=== PATIENT | male | born 1995 | race Caucasian/White ===

== ENCOUNTER 2017-07-28 23:16 | Emergency (ER) | payer SELFPAY ==
--- NOTE | 2017-07-28 23:40 | C.PDOC ---
History Of Present Illness The patient presents to the ED for evaluation of fever and chills which began around 2 days ago. Patient also reports having fevers at night. Patient reports waking during the night while sweating profusely. Patient took some Motrin yesterday without significant relief. Today, patient experienced hematuria and dysuria and presents for further evaluation. He denies pain, nausea, vomiting. Time Seen by Provider: 07/28/17 23:40 Chief Complaint (Nursing): Fever History Per: Patient History/Exam Limitations: no limitations Onset/Duration Of Symptoms: Days (2) Current Symptoms Are (Timing): Still Present Sick Contacts (Context): None Associated Symptoms: Fever, Chills, Other (dysuria, hematuria ). denies: Nausea , Vomiting Ear Symptoms: Bilateral: None Severity: Mild Pain Scale Rating Of: 0 Recent travel outside of the [place]: No Additional History Per: Patient Past Medical History Reviewed: Historical Data, Nursing Documentation, Vital Signs Vital Signs: Last Vital Signs Temp 98.9 F 07/28/17 23:21 Pulse 86 07/28/17 23:21 Resp 20 07/28/17 23:21 BP 129/86 07/28/17 23:21 Pulse Ox 99 07/29/17 00:07 - Medical History PMH: No Chronic Diseases Surgical History: No Surg Hx Family History: States: Unknown Family Hx - Social History Hx Alcohol Use: Yes Hx Substance Use: No - Immunization History Hx Tetanus Toxoid Vaccination: No Hx Influenza Vaccination: No Hx Pneumococcal Vaccination: No Review Of Systems Constitutional: Positive for: Fever, Chills ENT: Negative for: Nose Discharge, Nose Congestion Cardiovascular: Negative for: Chest Pain, Palpitations Respiratory: Negative for: Cough, Shortness of Breath Gastrointestinal: Negative for: Nausea, Vomiting, Abdominal Pain Genitourinary: Positive for: Dysuria, Hematuria. Negative for: Frequency Skin: Negative for: Rash, Lesions, Jaundice, Bruising Neurological: Negative for: Weakness, Numbness Psych: Negative for: Anxiety Physical Exam - Physical Exam Appears: Non-toxic, No Acute Distress Skin: Warm, Dry Head: Normacephalic Eye(s): bilateral: Normal Inspection Oral Mucosa: Moist Neck: Supple Chest: Symmetrical, No Deformity, No Tenderness Cardiovascular: Rhythm Regular, No Murmur Respiratory: No Rales, No Rhonchi, No Wheezing Gastrointestinal/Abdominal: Soft, No Tenderness, No Guarding, No Rebound Back: Other (left-sided flank discomfort ) Extremity: Normal ROM, Capillary Refill (less than 2 seconds ) Neurological/Psych: Oriented x3 Gait: Steady ED Course And Treatment - Laboratory Results Result Diagrams: 07/28/17 23:52 07/28/17 23:52 O2 Sat by Pulse Oximetry: 99 (on RA) Pulse Ox Interpretation: Normal Progress Note: labs ordered and reviewed. Patient received IV Fluids. Medical Decision Making Medical Decision Making: Upon provider reevaluation patient is feeling better, is medically stable, and requires no further treatment in the ED at this time. Patient will be discharged home with Rx for bactrim ds. Counseling was provided and all questions were answered regarding diagnosis and need for follow up with the referred clinic. There is agreement to discharge plan. Return if symptoms persist or worsen. Disposition Counseled Patient/Family Regarding: Studies Performed, Diagnosis, Need For Followup, Rx Given - Disposition Referrals: [facility] [Outside] [facility] [Outside] Disposition: HOME/ ROUTINE Disposition Time: 23:40 Condition: FAIR Additional Instructions: Please return if symptoms recur Prescriptions: Sulfamethoxazole/Trimethoprim [Bactrim DS 800 mg-160 mg] 1 tab PO BID #28 tab Instructions: Urinary Tract Infection in Men (DC) Forms: [facility] (Bulgarian) - Clinical Impression Clinical Impression: UTI (urinary tract infection) - Scribe Statement The provider has reviewed the documentation as recorded by the Scribe (Maria Luz Cannon) Provider Attestation: All medical record entries made by the Scribe were at my direction and personally dictated by me. I have reviewed the chart and agree that the record accurately reflects my personal performance of the history, physical exam, medical decision making, and the department course for this patient. I have also personally directed, reviewed, and agree with the discharge instructions and disposition.
[2017-07-28] MEDS ORDERED: Sodium Chloride 0.9% 1,000 ML IV ONE (23:44)
[2017-07-28 23:57] LABS: BASO # 0.1 K/uL (0.0-0.2); BASO % 0.7 % (0.0-2.0); EOS % 0.1 % (0.0-4.0); HEMATOCRIT 49.2 % (35.0-51.0); LYMPH # 1.5 K/uL (1.0-4.3); LYMPH % 15.8 % (20.0-40.0); MEAN CELL VOLUME 82.2 fL (80.0-94.0); MEAN CORPUSCULAR HEMOGLOBIN 27.5 pg (27.0-31.0); MEAN CORPUSCULAR HGB CONC 33.5 g/dL (33.0-37.0); MEAN PLATELET VOLUME 10.6 fL (7.2-11.7); MONO # 0.8 K/uL (0.0-0.8); MONO % 8.5 % (0.0-10.0); WHITE BLOOD COUNT 9.5 K/uL (4.8-10.8)
[2017-07-29] MEDS ORDERED: Sodium Chloride 0.9% 1,000 ML ONE
[2017-07-29 00:09] LABS: RBC URINE 387 /hpf (0-3); URINE BACTERIA OCC (<OCC); URINE BILIRUBIN NEGATIVE (NEGATIVE); URINE BLOOD 3+ (NEGATIVE); URINE COLOR Amber (YELLOW); URINE GLUCOSE (UA) NORMAL (Normal); URINE KETONE NEGATIVE (NEGATIVE); URINE LEUKOCYTE ESTERASE 3+ Leu/uL (Negative); URINE PROTEIN 2+ mg/dL (NEGATIVE); WBC CLUMPS MANY /hpf; WBC URINE 1042 /hpf (0-5)
[2017-07-29] MEDS ORDERED: cefTRIAXone IV 1 gm in Dextros 50 ML IVPB ONE ×2 (00:10→00:37)
[2017-07-29 00:22] LABS: CHLORIDE 99 mmol/L (98-107); SODIUM 140 mmol/L (132-148)
[2017-07-29 00:25] LABS: GFR AFRICAN-AMERICAN > 60
[2017-07-29 00:26] LABS: BLOOD UREA NITROGEN 12 mg/dL (9-20); CALCIUM 9.5 mg/dl (8.6-10.4); CARBON DIOXIDE 26 mmol/L (22-30); GLUCOSE,RANDOM 80 mg/dL (75-110)
--- NOTE | 2017-07-29 01:17 | CT ---
EXAM: CT Abdomen and Pelvis Without Intravenous Contrast CLINICAL HISTORY: 22 years old, male; Pain; Abdominal pain; Additional info: Hematuria, fever, chills, TECHNIQUE: Axial computed tomography images of the abdomen and pelvis without intravenous contrast. All CT scans at this facility use one or more dose reduction techniques, viz.: automated exposure control; ma/kV adjustment per patient size (including targeted exams where dose is matched to indication; i.e. head); or iterative reconstruction technique. Coronal and sagittal reformatted images were created and reviewed. COMPARISON: No relevant prior studies available. FINDINGS: 3 mm nodular focus in the right lower lobe, series 5 image 4. The unenhanced liver, pancreas and adrenal glands demonstrate no acute abnormalities. Spleen size upper limits of normal. No obstructing renal calculus or hydronephrosis. The aorta is normal in caliber. Please note evaluation for underlying visceral lesions/abnormalities limited without intravenous contrast. Limited evaluation of the bowel without enteric contrast. The small and large bowel as visualized demonstrate no evidence of obstruction or clear focus of inflammation. Normal caliber appendix. No ascites. No free air. Limited evaluation of the bladder without contrast and due to lack of distention, however, there is suggestion of wall thickening. Correlate clinically to exclude cystitis. Osseous structures intact. IMPRESSION: Limited evaluation of the bladder without contrast and due to lack of distention, however, there is suggestion of wall thickening. Correlate clinically to exclude cystitis. No obstructing renal calculus or hydronephrosis. 3 mm nodular focus in the right lower lobe, series 5 image 4. Spleen size upper limits of normal. Study limited by lack of intravenous or enteric contrast.
[2017-07-29 01:48] VITALS: BP 153/73; PULSE 71; RESP 18; TEMP 98.4; O2SAT 97
== END 2017-07-29 02:11 | disposition home or self-care (01) ==
LOC: C.ER 23:16
DX: N39.0 Urinary tract infection, site not specified (principal)
CPT/HCPCS: 74176; 80048; 81001; 85025; 96361; 96374; 99285; J0696; J7040